=== PATIENT | female | born 1960 | race Hispanic/Latino ===

== ENCOUNTER 2017-10-13 18:51 | Emergency (ER) | payer SELFPAY ==
[2017-10-13 19:02] VITALS: BP 127/52
[2017-10-13] MEDS ORDERED: XYLOCAINE 1% MPF 5 mL INFILTRATI ONE (21:45)
--- NOTE | 2017-10-13 21:50 | Emergency Department Report ---
ED Laceration HPI - HPI Chief Complaint: Extremity Injury, Upper Stated Complaint: RIGHT HAND FINGER LACERATION Time Seen by Provider: 10/13/17 21:44 Occurred When: Today Location: Upper Extremity (right hand, 5th digit) Severity: moderate Tetanus Status: Up to Date Laceration Symptoms: Yes Pain, No Foreign Body Sensation, No Numbness, No Weakness Other History: This is a 56 y.o. female that presents with laceration to right hand. Patient states she was at a birthday green party today and tried to cut a piece of cake for a child. The child attempt to pull the knife from her hand and it slide across the palmar digital aspect of right hand. There are superficial lacerations to 2nd-5th fingers. The laceration to the 5th digit is deep with large bloody drainage. Patient cleaned wounds with soap and water and applied bandaids prior to coming in for evaluation. Denies numbness, tingling, swelling , foreign body, and redness. ED Review of Systems ROS: Stated complaint: RIGHT HAND FINGER LACERATION Other details as noted in HPI Constitutional: denies: chills, fever Respiratory: denies: cough, shortness of breath, wheezing Cardiovascular: denies: chest pain, palpitations, edema, syncope Gastrointestinal: denies: abdominal pain, nausea, vomiting, diarrhea Skin: lesions (laceration to 5th digit dorsey area). denies: rash ED Past Medical Hx - Past Medical History Previous Medical History?: Yes Hx Headaches / Migraines: Yes Hx Asthma: Yes Additional medical history: hypothyroidism - Surgical History Past Surgical History?: Yes Hx Appendectomy: Yes Additional Surgical History: x 1 - Social History Smoking Status: Former Smoker Substance Use Type: Alcohol, Prescribed Laceration Physical Exam - Exam General: Vital signs noted. No distress. Alert and acting appropriately. Wound Length (cm): 1 Laceration Location: Upper Extremity (right, 5th, proximal palmar) Laceration Exam: Yes Exposed Tendon, Vessel, or Nerve, Yes Normal Distal CMS, No Foreign Body, No Tendon Injury ED Course Vital Signs 10/13/17 18:59 Temperature 98.1 F Pulse Rate 88 Respiratory 16 Rate Blood Pressure 127/52 O2 Sat by Pulse 95 Oximetry - Laceration /Wound Repair Right Proximal Palm Finger Wound Location: upper extremity (right, 5th proximal, palmar, phalanx) Wound Length (cm): 1 Wound's Depth, Shape: into muscle, linear Wound Explored: no foreign body removed Irrigated w/ Saline (ccs): 5 Betadine Prep?: Yes Anesthesia: 1% Lidocaine Volume Anesthetic (ccs): 1 Wound Repaired With: sutures Suture Size/Type: 5:0 Number of Sutures: 3 Layer Closure?: No Sterile Dressing Applied?: Yes ED Medical Decision Making - Medical Decision Making This is a 56 y.o. female presents with right 5th digit laceration that occurred today. Patient examined by me. Physical findings of 1 cm laceration, exposed intact tendon, and nonvisual of bone. Patient is non-toxic appearing and stable. Closed laceration with 3 sutures, review note. 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 Discharged home and f/u with PCP or return to ER for suture removal in 7 days. Discussed ER care plan with patient. Patient agreed with plan. F/U with PCP. Critical care attestation.: If time is entered above; I have spent that time in minutes in the direct care of this critically ill patient, excluding procedure time. ED Disposition Clinical Impression: Laceration of finger of right hand Qualifiers: Encounter type: initial encounter Finger: little finger Damage to nail status: without damage Foreign body presence: without foreign body Qualified Code(s): S61.216A - Laceration without foreign body of right little finger without damage to nail, initial encounter Disposition: - TO HOME OR SELFCARE Is pt being admited?: No Does the pt Need Aspirin: No Condition: Stable Instructions: Suture Care (ED), Laceration (ED) Additional Instructions: Avoid over use of right hand. Don't apply topical antibiotics to wound until sutures removed. Follow up with Primary Care Provider or ER in 7 days for suture removal. Return to ER if red, swollen, foul discharge, or fever. Referrals: [facility] [Outside] - 3-5 Days [facility] [Outside] - 3-5 Days [facility] [Outside] - 3-5 Days Forms: Work/School Release Form(ED) Time of Disposition: 22:34 Print Language: KOREAN
== END 2017-10-13 22:40 | disposition home or self-care (01) ==
LOC: ED 18:51
DX: S61.216A Laceration without foreign body of right little finger without damage to nail, initial encounter (principal); G43.909 Migraine, unspecified, not intractable, without status migrainosus; J45.909 Unspecified asthma, uncomplicated; E03.9 Hypothyroidism, unspecified; Z90.49 Acquired absence of other specified parts of digestive tract; Z87.891 Personal history of nicotine dependence; Z88.6 Allergy status to analgesic agent; Z88.0 Allergy status to penicillin; W26.0XXA Contact with knife, initial encounter; Y93.89 Activity, other specified; Y99.8 Other external cause status; Y92.89 Other specified places as the place of occurrence of the external cause

== ENCOUNTER 2019-01-10 16:15 | Emergency (ER) | payer SELFPAY ==
[2019-01-10] MEDS ORDERED: TYLENOL PO ONE (16:30)
--- NOTE | 2019-01-10 16:32 | Event Note ---
ED Screening Note Date of service: 01/10/19 Time: 16:32 ED Screening Note: 58 y/o female complains of right ankle and right foot pain s/p fall. This initial assessment/diagnostic orders/clinical plan/treatment(s) is/are subject to change based on patients health status, clinical progression and re- assessment by fellow clinical providers in the ED. Further treatment and workup at subsequent clinical providers discretion. Patient/guardian urged not to elope from the ED as their condition may be serious if not clinically assessed and managed. Initial orders include:
[2019-01-10] MEDS ORDERED: TYLENOL ONE (16:33)
--- NOTE | 2019-01-10 17:51 | XRay Report ---
Left foot 3 views INDICATION: Left foot pain following fall IMPRESSION: No fracture or subluxation of the left foot is identified. Signer Name: Yossi Helm MD Signed: 01/10/2019 5:47 PM Workstation Name: [id number]
--- NOTE | 2019-01-10 17:54 | XRay Report ---
Left ankle 3 views INDICATION: Left ankle pain. 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 No acute abnormali ty is identified. Signer Name: Yossi Helm MD Signed: 01/10/2019 5:50 PM Workstation Name: [id number]
[2019-01-10] MEDS ORDERED: PERCOCET 5/325 PO ONE (20:06)
[2019-01-10] MEDS ORDERED: ZOFRAN ODT PO ONE (20:06)
--- NOTE | 2019-01-10 20:58 | Emergency Department Report ---
ED Lower Extremity HPI - General Chief Complaint: Fall Stated Complaint: (L) FOOT PAIN Time Seen by Provider: 01/10/19 19:40 Source: patient Mode of arrival: Ambulatory Limitations: No Limitations - History of Present Illness Initial Comments: Patient is a 58-year-old -[place] female with a history of hypothyroidism who presents to the ED, no acute onset persistent severe left foot and ankle pain after she slipped and fell down on a concrete floor at a car dealership about 6 hours ago. Patient states that she is unable to bear weight on the left foot and ankle because of severe pain. Patient denies syncope, dizziness, seizures, nausea, vomiting, numbness and tingling of lower extremities bilaterally, chest pain, shortness of breath, hip pain, low back pain, chest pain or neck pain or head injury. MD Complaint: ankle injury (left), foot injury (left) -: Sudden, hour(s) (7) Injury: Ankle: Left (pain), Foot: Left (pain) Type of Injury: inversion, eversion, hyperextension Place: street/outdoors Severity: severe Severity scale (0 -10): 8 Improves With: nothing Worsens With: weight bearing, movement, palpation Context: fall Associated Symptoms: snap/pop sensation, swelling, able to partially bear weight. denies: numbness, tingling - Related Data Previous Rx's Medication Instructions Recorded Last Taken Type Metaxalone [Skelaxin] 800 mg PO Q8H PRN #24 tablet 01/10/19 Unknown Rx traMADol [Ultram] 50 mg PO Q6HR PRN #20 tablet 01/10/19 Unknown Rx Allergies Allergy/AdvReac Type Severity Reaction Status Date / Time aspirin Allergy Swelling Verified 10/13/17 18:58 NSAIDS (Non-Steroidal Allergy Swelling Verified 10/13/17 18:58 Anti-Inflamma Penicillins Allergy Nausea Verified 10/13/17 18:58 ED Review of Systems ROS: Stated complaint: (L) FOOT PAIN Other details as noted in HPI Constitutional: denies: chills, fever Eyes: denies: eye pain, eye discharge, vision change ENT: denies: ear pain, throat pain Respiratory: denies: cough, shortness of breath, wheezing Cardiovascular: denies: chest pain, palpitations Endocrine: no symptoms reported Gastrointestinal: denies: abdominal pain, nausea, diarrhea Genitourinary: denies: urgency, dysuria, discharge Musculoskeletal: joint swelling (left ankle and foot), arthralgia (left ankle and foot). denies: back pain Skin: denies: rash, lesions Neurological: denies: headache, weakness, paresthesias Psychiatric: denies: anxiety, depression Hematological/Lymphatic: denies: easy bleeding, easy bruising ED Past Medical Hx - Past Medical History Previous Medical History?: Yes Hx Headaches / Migraines: Yes Hx Asthma: Yes Additional medical history: hypothyroidism - Surgical History Past Surgical History?: Yes Hx Appendectomy: Yes Additional Surgical History: x 1 - Social History Smoking Status: Never Smoker - Medications Home Medications: Home Medications Medication Instructions Recorded Confirmed Last Taken Type Metaxalone [Skelaxin] 800 mg PO Q8H PRN #24 tablet 01/10/19 Unknown Rx traMADol [Ultram] 50 mg PO Q6HR PRN #20 tablet 01/10/19 Unknown Rx ED Physical Exam - General Limitations: No Limitations General appearance: alert, in no apparent distress - Head Head exam: Present: atraumatic, normocephalic, normal inspection - Eye Eye exam: Present: normal appearance, PERRL, EOMI. Absent: scleral icterus, conjunctival injection, nystagmus Pupils: Present: normal accommodation - ENT ENT exam: Present: normal exam, normal orophraynx, mucous membranes moist, TM's normal bilaterally, normal external ear exam - Neck Neck exam: Present: normal inspection, full ROM. Absent: tenderness, lymphadenopathy - Respiratory Respiratory exam: Present: normal lung sounds bilaterally. Absent: respiratory distress, wheezes, rhonchi, chest wall tenderness, accessory muscle use, decreased breath sounds, prolonged expiratory - Cardiovascular Cardiovascular Exam: Present: regular rate, normal rhythm, normal heart sounds. Absent: systolic murmur, diastolic murmur, rubs, gallop - GI/Abdominal GI/Abdominal exam: Present: soft, normal bowel sounds. Absent: tenderness, guarding, hyperactive bowel sounds, hypoactive bowel sounds, organomegaly - Rectal Rectal exam: Present: deferred - Extremities Exam Extremities exam: Present: normal inspection, tenderness (left ankle and foot), normal capillary refill, joint swelling (kleft ankle). Absent: full ROM (due to pain) - Back Exam Back exam: Present: normal inspection, full ROM. Absent: tenderness, CVA tenderness (R), CVA tenderness (L), muscle spasm, paraspinal tenderness, vertebral tenderness - Neurological Exam Neurological exam: Present: alert, oriented X3, CN II-XII intact, normal gait, reflexes normal - Psychiatric Psychiatric exam: Present: normal affect, normal mood - Skin Skin exam: Present: warm, dry, intact, normal color. Absent: rash ED Course Vital Signs 01/10/19 01/10/19 16:28 20:31 Temperature 98.1 F Pulse Rate 74 Respiratory 18 20 Rate Blood Pressure 124/51 O2 Sat by Pulse 97 Oximetry - Reevaluation(s) Reevaluation #1: 01/10/19 20:55 Patient is alert and oriented 3 and is not in distress. Patient is just ending the ED. Left ankle and foot x-rays show no acute fractures or subluxations. Patient's left ankle was splinted and is about the patient given crutches to help in ambulation. Patient was discharged home on pain medications and advised follow-up with her primary care physician in 5-7 days for reevaluation. Patient advised to return to the ED immediately if symptoms get worse. ED Lower Extremity MDM - Radiology Data Radiology results: report reviewed, image reviewed Left ankle and foot x-rays show no acute fractures or subluxations. - Medical Decision Making Patient is alert and oriented 3 and is not in distress. Patient is just ending the ED. Left ankle and foot x-rays show no acute fractures or subluxations. Patient's left ankle was splinted and is about the patient given crutches to help in ambulation. Patient was discharged home on pain medications and advised follow-up with her primary care physician in 5-7 days for reevaluation. Patien t advised to return to the ED immediately if symptoms get worse. - Differential Diagnosis left ankle sprain; Left foot sprain; Left ankle contusion Critical care attestation.: If time is entered above; I have spent that time in minutes in the direct care of this critically ill patient, excluding procedure time. ED Disposition Clinical Impression: Severe sprain of left ankle Qualifiers: Encounter type: initial encounter Qualified Code(s): S93.402A - Sprain of unspecified ligament of left ankle, initial encounter Sprain of left foot Qualifiers: Encounter type: initial encounter Qualified Code(s): S93.602A - Unspecified sprain of left foot, initial encounter Disposition: TO HOME OR SELFCARE Is pt being admited?: No Does the pt Need Aspirin: No Condition: Stable Instructions: Ankle Sprain (ED), Foot Sprain (ED) Additional Instructions: Take medications with food, drink plenty of fluids and follow-up with primary care physician in 7-10 days for reevaluation. Return to the ED immediately if symptoms get worse. Prescriptions: Metaxalone [Skelaxin] 800 mg PO Q8H PRN #24 tablet PRN Reason: Spasms traMADol [Ultram] 50 mg PO Q6HR PRN #20 tablet PRN Reason: Pain Referrals: [facility] [Outside] - 3-5 Days Time of Disposition: 20:59 Print Language: [place]
[2019-01-10 22:11] VITALS: BP 119/60
== END 2019-01-10 22:12 | disposition home or self-care (01) ==
LOC: ED 16:15
DX: S93.402A Sprain of unspecified ligament of left ankle, initial encounter (principal); G43.909 Migraine, unspecified, not intractable, without status migrainosus; J45.909 Unspecified asthma, uncomplicated; E03.9 Hypothyroidism, unspecified; Z90.49 Acquired absence of other specified parts of digestive tract; Z79.899 Other long term (current) drug therapy; Z88.6 Allergy status to analgesic agent; Z88.0 Allergy status to penicillin; Z88.8 Allergy status to other drugs, medicaments and biological substances; W01.198A Fall on same level from slipping, tripping and stumbling with subsequent striking against other object, initial encounter; Y93.89 Activity, other specified; Y92.488 Other paved roadways as the place of occurrence of the external cause; Y99.8 Other external cause status
CPT/HCPCS: 99284; Q0162